=== PATIENT | male | born 1965 | race Caucasian/White ===

== ENCOUNTER 2018-03-03 12:52 | Inpatient (IN) | payer BC ==
[~2018-03-03] VITALS: Ht 177.8 cm; Wt 105.5 kg
--- NOTE | ~2018-03-03 | CON ---
[place], [place] REPORT OF CONSULTATION NAME: MIGUE CRUZ UNIT #: [id number] ROOM: 512 DOCTOR: LILLIAM HENRY MD BIRTHDATE: [birth year] DOS: 03/03/2018 REASON FOR CONSULTATION: Chest pain, abnormal electrocardiogram, abnormal troponin level consistent with non-ST elevation ME. HISTORY OF PRESENT ILLNESS: The patient is a 53-year-old man with a history of probable hypertension and heavy cigarette abuse, smoking 2-3 packs a day for at least 20 years. He states that he was in his normal state of health until about 2 weeks ago when he began having episodes of substernal chest burning "like heartburn." These would come and go presumably without provocation, although upon further questioning, he does admit that he gets the pains every time he takes a shower or when he tries to cut grass. The pains are relieved by rest. During the pains, he feels weak and breathless and feels like he cannot get enough air. The pains last up to 20-30 minutes. He believes antiacids help, but admits that the pains seem to go away even if he does not take an antacid. Today, the pains were worse, so he came to the Emergency Room where his electrocardiogram showed lateral symmetric T-wave inversions and his troponin was elevated at 0.179. Subsequent troponin levels have fallen in a pattern consistent with a recent myocardial infarction. The patient still does have episodic chest pain at rest. PAST MEDICAL HISTORY: Includes the followin. Hypertension documented a few years ago. The patient has not been treated for hypertension, however. 2. Heavy cigarette abuse. The patient smokes 2-3 packs a day. 3. The patient was told that he has a low HDL level. 4. Morbid obesity. MEDICATIONS: Prior to admission, acetaminophen with hydrocodone q.6h. p.r.n. ALLERGIES: The patient has no known drug allergies. REVIEW OF SYSTEMS: The patient denies diplopia or loss of vision. He denies lightheadedness or syncope. He denies focal weakness. He denies fevers, chills, sweats or recent weight change. He denies nausea or vomiting. He did have the episodes of chest pain and dyspnea as noted above. He denies hemoptysis or hematemesis. He denies change in bowel or bladder habits and denies blood in the stools or urine. He denies skin rashes. He denies heat or cold intolerance and denies polyuria or polydipsia. He has had exertional chest pain noted above. The remainder of the review of systems is negative except as noted above. FAMILY HISTORY: Negative for early coronary disease. His father of COPD. His mother is alive and has COPD. SOCIAL HISTORY: The patient is and lives with his . He works as a spray i painter. He does not consume significant amounts of alcohol, but does smoke 2-3 packs of cigarettes a day. PHYSICAL EXAMINATION: [place], [place] REPORT OF CONSULTATION NAME: MIGUE CRUZ UNIT #: [id number] ROOM: [facility] DOCTOR: LILLIAM HENRY MD BIRTHDATE: [birth year] GENERAL: The patient is an overweight white male who is awake, alert and oriented. VITAL SIGNS: Pulse is 61 and regular, blood pressure 139/58. He is afebrile. He weighs 105.5 kg and has a body mass index of 33.4. HEENT: Normocephalic and atraumatic. Extraocular muscles are intact. Sclerae are clear. Pupils equal, round and react to light. The oral mucosa is moist. Tongue is midline. NECK: Supple. He has no jugular distention. Carotids are full. There are no bruits. He has no neck or supraclavicular masses, no thyromegaly. LUNGS: Respirations are unlabored. He has mild expiratory prolongation, but no wheezes or rales. He has no presacral edema or chest wall tenderness. CARDIOVASCULAR: His heart has a regular rhythm. He has a fourth heart sound, but no third heart sound or murmur. The PMI is not displaced. He has no precordial heave, lift or thrill. Palpation of the chest does not reproduce his pains. ABDOMEN: Soft and normally active without masses, organomegaly or bruits. EXTREMITIES: Showed no clubbing, cyanosis or edema. Peripheral pulses are palpable in the feet. He has no palpable cords or Homans sign. There are no obvious rashes. LABORATORY DATA: I reviewed his electrocardiogram and it does show symmetric T-wave inversions in the lateral leads, which have been variable during his hospitalization here. Hemoglobin is 17.1, white count 11,400, platelet count 243,000. INR 0.9. Sodium 140, potassium 4.0, chloride 107, CO2 of 29, BUN 15, creatinine 0.88. Lipid profile is not yet available. Initial troponin was 0.179. Subsequent troponin levels were 0.164 and 0.151. IMPRESSION: 1. Unstable angina. 2. A heavy cigarette abuse. PLAN: The patient does have EKG changes and enzymes consistent with myocardial injury. He continues to have episodic pain even at rest. For now, we will treat him with aspirin, beta vincent and intravenous heparin. We will arrange for him to have a cardiac catheterization within the next 24 hours. Indication is 3 with a score of 8. The patient does understand there is a risk of heart attack, stroke, , bleeding, bruising, dye reaction, irregular heartbeats, infections, etc., but agrees to proceed with catheterization. [facility] and I thank the hospitalist physicians at [facility] for asking our advice regarding this patient's management. [place], [place] REPORT OF CONSULTATION NAME: MIGUE CRUZ UNIT #: [id number] ROOM: 512 DOCTOR: LILLIAM HENRY MD BIRTHDATE: [birth year] LILLIAM HENRY MD CM:CONSTR:REPORT OF CONSULTATION 09 03/03/182120 interface
[~2018-03-03 12:52] MED LIST: BACTRIM DS 8001 TA1 PO; BACTROBAN2% TP; CIPRO500 MG PO; VICODIN 500 MG-1 TAB PO
[2018-03-03 12:54] VITALS: BP 152/80
[2018-03-03 13:27] LABS: BASO # 0.1 10*3/uL (0.0-0.1); BASO % 0.4 % (0.0-1.0); EOS # 0.4 10*3/uL (0.0-0.4); EOS % 3.1 % (1.0-4.0); HEMATOCRIT 51.8 % (42.0-52.0); HEMOGLOBIN 17.1 g/dl (14.0-18.0); LYMPH # 2.6 10*3/uL (1.3-4.4); LYMPH % 22.6 % (27.0-41.0); MEAN CELL VOLUME 93.5 fl (80.0-94.0); MEAN CORPUSCULAR HGB 30.9 pg (27.0-31.0); MEAN PLATELET VOLUME 9.5 fl (9.6-12.3); MONO # 0.9 10*3/uL (0.1-1.0); MONO % 7.9 % (3.0-9.0); NEUT # 7.4 10*3/uL (2.3-7.9); NEUT % 65.6 % (47.0-73.0); PLATELET COUNT AUTOMATED 243 10*3/uL (130-400); RED BLOOD COUNT 5.54 10*6/uL (4.50-5.90); RED CELL DISTRI WIDTH 13.8 % (0-14.5); WHITE BLOOD COUNT 11.4 10*3/uL (4.8-10.8)
[2018-03-03 13:45] LABS: ACT PARTIAL THROMBO TIME 25.8 SECONDS (20.8-31.5); INTERNATIONAL NORM RATIO 0.9 (2.0-3.5)
[2018-03-03 13:46] LABS: ALBUMIN 3.6 gm/dl (3.1-4.5); ALKALINE PHOSPHATASE 92 U/L (45-117); BUN 15 mg/dl (7-24); CHLORIDE 107 mmol/L (98-107); CREATININE 0.88 mg/dL (0.70-1.30); SGOT/AST 18 IU/L (3-35); SGPT/ALT 29 U/L (12-78); SODIUM 140 mmol/L (136-145); TOTAL PROTEIN 7.2 gm/dL (6.4-8.2)
[2018-03-03 13:51] LABS: TROPONIN I 0.179 ng/ml (<0.045)
[2018-03-03 15:50] VITALS: BP 150/63
[2018-03-03 16:05] VITALS: BP 141/62
[2018-03-03 20:00] VITALS: BP 139/58
[2018-03-03] MEDS ORDERED: ASPIRIN ADULT L81 M2 PO (21:34)
[2018-03-03] MEDS ORDERED: METOPROLOL SUCC25 M2 PO (21:34)
[2018-03-03] MEDS ORDERED: ATORVASTATIN CA80 M1 PO (21:34)
[2018-03-04] VITALS: BP 123/61
[2018-03-04 03:56] LABS: BASO # 0.1 10*3/uL (0.0-0.1); BASO % 0.6 % (0.0-1.0); EOS # 0.6 10*3/uL (0.0-0.4); EOS % 4.1 % (1.0-4.0); HEMATOCRIT 50.5 % (42.0-52.0); HEMOGLOBIN 16.4 g/dl (14.0-18.0); LYMPH # 4.2 10*3/uL (1.3-4.4); LYMPH % 30.8 % (27.0-41.0); MEAN CELL VOLUME 94.7 fl (80.0-94.0); MEAN CORPUSCULAR HGB 30.8 pg (27.0-31.0); MEAN CORPUSCULAR HGB CONC 32.5 g/dl (33.0-37.0); MEAN PLATELET VOLUME 9.5 fl (9.6-12.3); MONO # 0.9 10*3/uL (0.1-1.0); MONO % 6.5 % (3.0-9.0); NEUT # 7.8 10*3/uL (2.3-7.9); NEUT % 57.5 % (47.0-73.0); PLATELET COUNT AUTOMATED 234 10*3/uL (130-400); RED BLOOD COUNT 5.33 10*6/uL (4.50-5.90); WHITE BLOOD COUNT 13.6 10*3/uL (4.8-10.8)
[2018-03-04 04:06] LABS: INTERNATIONAL NORM RATIO 0.9 (2.0-3.5)
[2018-03-04 04:13] LABS: ALBUMIN 3.3 gm/dl (3.1-4.5); ALKALINE PHOSPHATASE 92 U/L (45-117); BUN 15 mg/dl (7-24); CHLORIDE 110 mmol/L (98-107); CHOLESTEROL 167 mg/dL (<200); CREATININE 0.93 mg/dL (0.70-1.30); HDL CHOLESTEROL 28 mg/dl (40-60); PHOSPHOROUS 3.3 mg/dL (2.5-4.9); POTASSIUM 4.1 mmol/L (3.5-5.1); SGOT/AST 19 IU/L (3-35); SGPT/ALT 29 U/L (12-78); SODIUM 143 mmol/L (136-145); TOTAL PROTEIN 6.9 gm/dL (6.4-8.2); TRIGLYCERIDES 411 mg/dl (<150)
[2018-03-04 04:14] LABS: FREE T4 0.94 ng/dl (0.76-1.46)
[2018-03-04 07:56] LABS: VITAMIN D, 25-HYDROXY 26.5 ng/mL (30-100)
[2018-03-04 08:00] VITALS: BP 128/51
== END 2018-03-04 08:54 | disposition other institution (70) | DRG 311 ==
LOC: ED 12:52 → 5E 14:23 → EDHOLD 14:23 → 5E 14:47
PROVIDERS: Emergency Medicine; Family Medicine
DX: I20.0 Unstable angina (principal); E66.01 Morbid (severe) obesity due to excess calories; E83.41 Hypermagnesemia; R74.8 Abnormal levels of other serum enzymes; D72.829 Elevated white blood cell count, unspecified; I10 Essential (primary) hypertension; Z72.0 Tobacco use; Z71.6 Tobacco abuse counseling; Z83.6 Family history of other diseases of the respiratory system; Z68.33 Body mass index [BMI] 33.0-33.9, adult

== ENCOUNTER 2019-10-26 19:31 | Emergency (ER) | payer BC ==
[~2019-10-26] VITALS: Ht 177.8 cm; Wt 113.4 kg
[~2019-10-26 19:31] MED LIST changes: +ASPIRIN ADULT L81 M2 PO; +ATORVASTATIN CA80 M1 PO; +METOPROLOL SUCC25 M2 PO
== END 2019-10-26 21:58 | disposition home or self-care (01) ==
LOC: ED 19:31
DX: S60.222A Contusion of left hand, initial encounter (principal); M25.532 Pain in left wrist; I10 Essential (primary) hypertension; E66.01 Morbid (severe) obesity due to excess calories; Z79.899 Other long term (current) drug therapy; Z79.82 Long term (current) use of aspirin; W11.XXXA Fall on and from ladder, initial encounter; Y93.89 Activity, other specified; Y92.89 Other specified places as the place of occurrence of the external cause; Y99.8 Other external cause status

== ENCOUNTER → 2021-01-03 | Outpatient (CLI) | payer BC | END | disposition home or self-care (01) | LOC: US 12-03 13:30 | PROVIDERS: ATTEND Nurse Practitioner Family | DX: M79.662 Pain in left lower leg (principal) ==

== ENCOUNTER → 2021-06-13 | Outpatient (CLI) | payer BC ==
[2021-06-13 11:18] LABS: BASO # 0.1 10*3/uL (0.0-0.1); BASO % 0.6 % (0.0-1.0); EOS # 0.5 10*3/uL (0.0-0.4); EOS % 6.6 % (1.0-4.0); HEMATOCRIT 47.3 % (42.0-52.0); LYMPH # 2.2 10*3/uL (1.3-4.4); LYMPH % 27.4 % (27.0-41.0); MEAN CELL VOLUME 93.7 fl (80.0-94.0); MEAN CORPUSCULAR HGB 30.5 pg (27.0-31.0); MEAN CORPUSCULAR HGB CONC 32.6 g/dl (33.0-37.0); MEAN PLATELET VOLUME 8.8 fl (9.6-12.3); MONO # 0.7 10*3/uL (0.1-1.0); MONO % 8.3 % (3.0-9.0); NEUT # 4.5 10*3/uL (2.3-7.9); NEUT % 56.8 % (47.0-73.0); PLATELET COUNT AUTOMATED 280 10*3/uL (130-400); RED BLOOD COUNT 5.05 10*6/uL (4.50-5.90); RED CELL DISTRI WIDTH 13.4 % (0-14.5); WHITE BLOOD COUNT 7.9 10*3/uL (4.8-10.8)
[2021-06-13 11:36] LABS: ALBUMIN 3.9 gm/dl (3.1-4.5); BUN 14 mg/dl (7-24); CHLORIDE 107 mmol/L (98-107); CREATININE 0.98 mg/dL (0.70-1.30); POTASSIUM 4.5 mmol/L (3.5-5.1); SGOT/AST 48 IU/L (3-35); SGPT/ALT 78 U/L (12-78); SODIUM 139 mmol/L (136-145); TOTAL PROTEIN 7.4 gm/dL (6.4-8.2)
[2021-06-13 11:39] LABS: ALKALINE PHOSPHATASE 83 U/L (45-117)
== END | disposition home or self-care (01) ==
LOC: MRI 10:00 → LAB 10:00
PROVIDERS: ATTEND Psychiatry & Neurology Neurology
DX: M47.26 Other spondylosis with radiculopathy, lumbar region (principal); M51.17 Intervertebral disc disorders with radiculopathy, lumbosacral region; D17.79 Benign lipomatous neoplasm of other sites

== ENCOUNTER → 2021-07-01 | Outpatient (CLI) | payer BC | END | disposition home or self-care (01) | LOC: US 08:24 | PROVIDERS: ATTEND Nurse Practitioner Family | DX: K76.0 Fatty (change of) liver, not elsewhere classified (principal); R74.8 Abnormal levels of other serum enzymes ==

== ENCOUNTER 2022-05-17 23:29 | Emergency (ER) | payer BC ==
[~2022-05-17] VITALS: Ht 187.9 cm; Wt 109.8 kg
[2022-05-18 00:14] LABS: BASO # 0.1 10*3/uL (0.0-0.1); BASO % 0.4 % (0.0-1.0); EOS # 0.1 10*3/uL (0.0-0.4); EOS % 0.4 % (1.0-4.0); HEMATOCRIT 40.2 % (42.0-52.0); LYMPH # 2.3 10*3/uL (1.3-4.4); LYMPH % 14.6 % (27.0-41.0); MEAN CELL VOLUME 94.6 fl (80.0-94.0); MEAN CORPUSCULAR HGB 30.8 pg (27.0-31.0); MEAN CORPUSCULAR HGB CONC 32.6 g/dl (33.0-37.0); MEAN PLATELET VOLUME 9.1 fl (9.6-12.3); MONO % 6.2 % (3.0-9.0); NEUT # 12.1 10*3/uL (2.3-7.9); NEUT % 77.1 % (47.0-73.0); NUCLEATED RED BLOOD CELL 0.1 % (0.0-0.0); PLATELET COUNT AUTOMATED 274 10*3/uL (130-400); RED BLOOD COUNT 4.25 10*6/uL (4.50-5.90); RED CELL DISTRI WIDTH 13.7 % (0-14.5); WHITE BLOOD COUNT 15.7 10*3/uL (4.8-10.8)
[2022-05-18 00:31] LABS: ACT PARTIAL THROMBO TIME 25.7 SECONDS (20.0-32.1)
[2022-05-18 00:32] LABS: ALKALINE PHOSPHATASE 92 U/L (45-117); BUN 23 mg/dl (7-24); CHLORIDE 109 mmol/L (98-107); CREATININE 0.92 mg/dL (0.70-1.30); LIPASE 165 U/L (73-393); POTASSIUM 4.4 mmol/L (3.5-5.1); SGOT/AST 34 IU/L (3-35); SGPT/ALT 67 U/L (12-78); SODIUM 139 mmol/L (136-145); TOTAL PROTEIN 6.8 gm/dL (6.4-8.2)
[2022-05-18 00:34] LABS: INTERNATIONAL NORM RATIO 0.9 (2.0-3.5)
== END 2022-05-18 04:04 | disposition home or self-care (01) ==
LOC: ED 23:29
PROVIDERS: Family Medicine
DX: R10.9 Unspecified abdominal pain (principal); R07.89 Other chest pain; J44.9 Chronic obstructive pulmonary disease, unspecified; E11.9 Type 2 diabetes mellitus without complications; F17.200 Nicotine dependence, unspecified, uncomplicated; Z79.899 Other long term (current) drug therapy; Z79.82 Long term (current) use of aspirin; Z95.5 Presence of coronary angioplasty implant and graft

== ENCOUNTER → 2023-01-14 | Outpatient (CLI) | payer BC ==
[~2023-01-14] MED LIST changes: +ASPIRIN ADULT L81 M1 PO; +BAYER ASPIRIN C81 MG PO; +DICLOFENAC SOD75 MG PO; +FLUTICASONE-SA1 EAC4 INH; +LISINOPRIL5 MG PO; +METFORMIN XR500 MG PO; +NEURONTIN300 MG PO; +OMEPRAZOLE10 MG PO; +OMEPRAZOLE40 MG PO; +PROVENTIL HFA6.7 GM INH; +TRELEGY ELLIPT1 EACH INH
== END | disposition home or self-care (01) ==
LOC: US 15:39
PROVIDERS: ATTEND Nurse Practitioner
DX: I65.23 Occlusion and stenosis of bilateral carotid arteries (principal); R09.89 Other specified symptoms and signs involving the circulatory and respiratory systems

== ENCOUNTER → 2023-04-05 | Outpatient (CLI) | payer BC ==
[2023-04-05 16:02] LABS: ALKALINE PHOSPHATASE 104 U/L (46-116); BUN 13 mg/dl (9-23); CHLORIDE 104 mmol/L (98-107); POTASSIUM 4.5 mmol/L (3.4-5.1); SGPT/ALT 38 U/L (10-49); TOTAL PROTEIN 6.7 gm/dL (6.0-8.0)
== END | disposition home or self-care (01) ==
LOC: LAB 15:13
PROVIDERS: ATTEND Psychiatry & Neurology Neurology
DX: M54.32 Sciatica, left side (principal)

== ENCOUNTER → 2023-08-02 | Outpatient (CLI) | payer BC ==
[2023-08-02 13:40] LABS: HEMATOCRIT 35.4 % (42.0-52.0); MEAN CELL VOLUME 76.3 fl (80.0-94.0); MEAN CORPUSCULAR HGB 20.9 pg (27.0-31.0); MEAN CORPUSCULAR HGB CONC 27.4 g/dl (33.0-37.0); MEAN PLATELET VOLUME 8.7 fl (9.6-12.3); PLATELET COUNT AUTOMATED 254 10*3/uL (130-400); RED BLOOD COUNT 4.64 10*6/uL (4.50-5.90); RED CELL DISTRI WIDTH 17.9 % (0-14.5); RETICULOCYTE % 2.29 % (0.50-2.50); WHITE BLOOD COUNT 9.7 10*3/uL (4.8-10.8)
[2023-08-02 13:42] LABS: MANUAL DIFF REFLEX YES
[2023-08-02 13:58] LABS: BASOPHILS 2 % (0-1); TOTAL CELLS COUNTED 100 #CELLS
[2023-08-02 13:59] LABS: MICROCYTOSIS SLIGHT; OVALOCYTES FEW; PLATELET SUFFICIENCY NORMAL (NORMAL); POLYCHROMASIA SLIGHT; SCHISTOCYTES FEW; TARGET CELLS FEW
== END | disposition home or self-care (01) ==
LOC: LAB 13:13
PROVIDERS: ATTEND Nurse Practitioner Family
DX: D64.9 Anemia, unspecified (principal)

== ENCOUNTER → 2023-09-02 | Outpatient (CLI) | payer BC ==
[2023-09-02 13:30] LABS: BASO # 0.1 10*3/uL (0.0-0.1); BASO % 0.9 % (0.0-1.0); EOS # 0.5 10*3/uL (0.0-0.4); EOS % 4.8 % (1.0-4.0); HEMATOCRIT 35.5 % (42.0-52.0); LYMPH # 1.9 10*3/uL (1.3-4.4); LYMPH % 18.3 % (27.0-41.0); MEAN CELL VOLUME 76.2 fl (80.0-94.0); MEAN CORPUSCULAR HGB 20.2 pg (27.0-31.0); MEAN CORPUSCULAR HGB CONC 26.5 g/dl (33.0-37.0); MEAN PLATELET VOLUME 9.6 fl (9.6-12.3); MONO # 0.9 10*3/uL (0.1-1.0); MONO % 8.6 % (3.0-9.0); NEUT # 6.8 10*3/uL (2.3-7.9); NEUT % 67.2 % (47.0-73.0); PLATELET COUNT AUTOMATED 347 10*3/uL (130-400); RED BLOOD COUNT 4.66 10*6/uL (4.50-5.90); RED CELL DISTRI WIDTH 18.2 % (0-14.5); WHITE BLOOD COUNT 10.2 10*3/uL (4.8-10.8)
== END | disposition home or self-care (01) ==
LOC: LAB 12:56
PROVIDERS: ATTEND Nurse Practitioner Family
DX: D64.9 Anemia, unspecified (principal)

== ENCOUNTER → 2024-12-12 | Outpatient (CLI) | payer BC ==
[~2024-12-12] MED LIST changes: -NEURONTIN300 MG PO; +NEURONTIN400 MG PO; +OMNICEF300 MG PO
== END | disposition home or self-care (01) ==
LOC: RAD 12:00
PROVIDERS: ATTEND Nurse Practitioner
DX: J44.9 Chronic obstructive pulmonary disease, unspecified (principal); J18.9 Pneumonia, unspecified organism